=== PATIENT | female | born 1960 | race Two or more races ===

== ENCOUNTER 2020-02-12 15:51 | Emergency (ER) | payer BC, MEDICAID ==
[~2020-02-12] VITALS: Ht 147.3 cm; Wt 78.0 kg
[2020-02-12 16:04] VITALS: BP 140/80
[2020-02-12] MEDS ORDERED: ACETAMINOPHEN 500 MG TAB PO ONE (16:45)
== END 2020-02-12 17:45 | disposition home or self-care (01) ==
LOC: ER 15:51 → EDBD 15:51 → ER 17:45
DX: S93.401A Sprain of unspecified ligament of right ankle, initial encounter (principal); S80.01XA Contusion of right knee, initial encounter; S90.31XA Contusion of right foot, initial encounter; M19.90 Unspecified osteoarthritis, unspecified site; V43.52XA Car driver injured in collision with other type car in traffic accident, initial encounter; Y93.I9 Activity, other involving external motion; Y92.410 Unspecified street and highway as the place of occurrence of the external cause; Y99.8 Other external cause status
CPT/HCPCS: 73610; 73630

== ENCOUNTER 2022-08-15 10:24 | Emergency (ER) | payer OTHER, MEDICAID ==
[~2022-08-15] VITALS: Ht 147.3 cm; Wt 94.2 kg
[2022-08-15] MEDS ORDERED: TETANUS-DIPTH-ACEL PERTUSSIS 0.5ML SYR Tdap IM ONE (11:30)
[2022-08-15] MEDS ORDERED: LIDOCAINE 1% HCL (LOCAL ANESTH.) INJ 20ML MDV IJ ONE (11:30)
[2022-08-15] MEDS ORDERED: ACETAMINOPHEN 500 MG TAB PO ONE (11:30)
[2022-08-15] MEDS ORDERED: AMOX-277 PO (11:38)
[2022-08-15] MEDS ORDERED: IBUP600T28 PO (11:38)
[2022-08-15 14:19] VITALS: BP 128/81
== END 2022-08-15 14:29 | disposition home or self-care (01) ==
LOC: ER 10:24
DX: S61.451A Open bite of right hand, initial encounter (principal); I10 Essential (primary) hypertension; Z88.1 Allergy status to other antibiotic agents; Z88.6 Allergy status to analgesic agent; W54.0XXA Bitten by dog, initial encounter; Y93.89 Activity, other specified; Y92.89 Other specified places as the place of occurrence of the external cause; Y99.8 Other external cause status
CPT/HCPCS: 12001; 73130; 90471; 90715; 99283; J2001